=== PATIENT | male | born 1950 | race Caucasian/White ===

== ENCOUNTER → 2017-01-20 | Outpatient (CLI) | payer MEDICARE ==
[~2017-01-20] MED LIST: ACETAMINOHPEN/C1 TAB PO; DAYPRO600 M1 PO; DEXTROAMPH SACC20 M1 PO; KEFLEX500 M1 PO
== END | disposition home or self-care (01) ==
LOC: RAD 10:33
DX: J43.9 Emphysema, unspecified (principal)

== ENCOUNTER → 2017-01-31 | Outpatient (CLI) | payer MEDICARE | END | disposition home or self-care (01) | LOC: CT 14:30 | DX: I25.10 Atherosclerotic heart disease of native coronary artery without angina pectoris (principal); J43.9 Emphysema, unspecified; R22.2 Localized swelling, mass and lump, trunk; F17.200 Nicotine dependence, unspecified, uncomplicated ==

== ENCOUNTER 2017-06-03 09:55 | Emergency (ER) | payer MEDICARE ==
[~2017-06-03] VITALS: Ht 190.5 cm; Wt 68.0 kg
[2017-06-03] MEDS ORDERED: MIRALAX POWDER17 G1 PO (11:48)
== END 2017-06-03 12:34 | disposition home or self-care (01) ==
LOC: ED 09:55
DX: K59.00 Constipation, unspecified (principal); F17.200 Nicotine dependence, unspecified, uncomplicated; Z88.1 Allergy status to other antibiotic agents

== ENCOUNTER → 2017-06-22 | Outpatient (CLI) | payer MEDICARE ==
[~2017-06-22] MED LIST changes: +MIRALAX POWDER17 G1 PO
== END | disposition home or self-care (01) ==
LOC: RAD 10:18
DX: M48.07 Spinal stenosis, lumbosacral region (principal); G95.89 Other specified diseases of spinal cord; M46.06 Spinal enthesopathy, lumbar region

== ENCOUNTER 2017-10-24 11:51 | Inpatient (IN) | payer MEDICARE ==
[~2017-10-24] VITALS: Ht 190.5 cm; Wt 67.2 kg
--- NOTE | ~2017-10-24 | CON ---
[place], [place] REPORT OF CONSULTATION NAME: RACHELLE TREVIZO UNIT #: [id number] ROOM: [facility] DOCTOR: ALVARO JERNIGAN MD,CHRISTOFER BIRTHDATE: [birth year] DOS: 10/26/2017 REASON FOR CONSULTATION: For assessment of current acute progressive respiratory failure with pneumonia. HISTORY OF PRESENT ILLNESS: This is a 67-year-old white male who has been hospitalized under the Hospitalist Services on 10/24/2017. The consultation was requested by Hospitalist Services. The patient has been admitted to the hospital. The patient was brought to the Emergency Room, the patient reported having symptoms of severe pain, which he described in the left chest. Pain was described to be nonradiating and localized, moderate to severe in nature. He was assessed in the Emergency Room a couple of weeks ago with some respiratory symptom, was given amoxicillin and sent home. The pain was described to be worsening progressively. He has been noted to have flu-like symptoms prior to that as well. He has not reported symptoms of hemoptysis. The patient has been admitted to the Telemetry Floor yesterday. He was noted with progressive deterioration of the oxygen requirement. The patient had respiratory failure and transferred to the Intensive Care Unit this morning. The patient's respiratory status worsened. Arterial blood gases were done for this patient and then I requested the patient to be intubated, which has been done successfully this morning. Currently, the patient has been intubated, getting sedation with the use of intra-Diprivan and combination with the IV Versed 5 mg q. 1 hour. Review of systems certainly cannot be performed as the patient is intubated. Remaining history is also obtained with review of the previous documentation of medical records from the other physician's notes. PAST MEDICAL HISTORY: The patient was reported with: 1. History of poor dentition. 2. Osteoarthritis. 3. Nicotine dependence. 4. Question of COPD, but there has not been any formal diagnosis described in the history. SOCIAL HISTORY: He was living at home prior to admission, he has been reported with history in the chart in the [facility] with half a pack of cigarettes per day for 40 years. The patient has been consuming beers every Monday. There was no history of illicit drug use reported. PAST SURGICAL HISTORY: Not reported with any significant past surgical history. FAMILY HISTORY: Reported as both parents had been . The father at age 6060 years old with complication related to mesothelioma. Mother at age 65-year-old with natural causes. HOME MEDICATIONS: The patient reported as a Tylenol with Codeine for p.r.n. use of arthritic pain. DRUG ALLERGY HISTORY: Reported as ERYTHROMYCIN. [place], [place] REPORT OF CONSULTATION NAME: RACHELLE TREVIZO UNIT #: [id number] ROOM: [facility] DOCTOR: CHRISTOFER CONWAY MD BIRTHDATE: [birth year] PHYSICAL EXAMINATION: GENERAL: This is a 67-year-old white male, thinly built, currently intubated on mechanical ventilator. Height were recorded 6 feet 3 inches, weight of 148 pounds, BMI of 18.5. VITAL SIGNS: Normal temperature of the patient recorded. The respiratory rate 18-24, heart rate of ____, blood pressure of 87/52 yesterday and currently noted this morning with assessment at 11:00 a.m. and at 10:00 a.m. 73/45. The respiratory rate ranges between 18 on the mechanical ventilator, high is noted 26 prior to mechanical ventilation. The vital signs of the patient which has been reported with hypotension, the patient yesterday had blood pressure of 80/47. The blood pressure of the patient on admission was noted as 117/69. The blood pressure at 10:00 a.m. was recorded as 73/45 and earlier 87/46. Intake for the patient from last 24 hours, intake 3.710 liter output 1400 mL, positive 2.31 liters. Pulse oxygen saturation of the patient currently noted 100% oxygen supplementation as 99-100% saturation. Prior to that on 50% Venturi mask 88% saturation. HEENT: The patient is currently orally intubated. Gastric tube has been inserted. The neck was supple. Head was atraumatic. Eyes, no icterus. CARDIOVASCULAR: S1, S2 is audible. LUNGS: The patient was noted with moderate reduced breath sounds with expiratory crackles noted in the mid and lower portion of the lung. There was no wheezing heard. ABDOMEN: Soft, flat, nontender. Bowel sound present without any tenderness. SKIN: No lesions or rashes. MUSCULOSKELETAL: No deformities. CENTRAL NERVOUS SYSTEM: Noted as normal extremity movement prior to intubation on mechanical ventilation per nursing staff. LABORATORY DATA: Lactic acid yesterday on admission 10/24/2017 was 1.2 and 2.6 yesterday. The CBC of the patient that was done on admission on 10/24/2017, WBC count normal, hemoglobin 13.3, hematocrit 38.9, platelet count was 91,000, 84% segmented neutrophils. The CMP of the patient on 10/24/2017, normal BUN and creatinine, sodium 129, and calcium was 8.1. The troponin was noted normal on admission on 10/24/2017. CBC yesterday, WBC count 3.2, hemoglobin 12.1, hematocrit 35.5, and platelet count 72,000. The BMP for this patient was noted with normal BUN and creatinine, sodium 131. Follow up lactic acid was noted on 10/25/2017 at 3.1. Blood culture for the patient, gram-positive cocci in clusters noted 1 out of 4 bottles. Another set of blood culture for the patient done on 10/25/2017, noted with one anaerobic bottle gram-positive cocci. The aerobic bottle was noted with no bacterial growth. Arterial blood gas for the patient that was done at 8:10 this morning prior to intubation pH of 7.37, pCO2 32, pO2 53. The chest x-ray of the patient on 10/24/2017 was noted with a small left lobe infiltration, interstitial marking and hyperinflation changes suggestive of COPD. Chest x-ray repeated again for the patient on 10/24/2017 shows increasing pulmonary infiltration noted in the lungs bilaterally worsened from admission. Chest x-ray of the patient that was done this morning shows endotracheal tube was noted 7 cm above the manolo level, infiltration of the lungs noted bilaterally, marked worsening of the infiltration noted with associated pleural fluid in the left side. [place], [place] REPORT OF CONSULTATION NAME: RACHELLE TREVIZO UNIT #: [id number] ROOM: [facility] DOCTOR: ALVARO JERNIGAN MD,[facility] BIRTHDATE: [birth year] IMPRESSION: 1. The patient who has been currently admitted to the hospital with rapidly progressive pneumonia with gram-positive cocci, which are noted in the Gram stain, possibility of Staph aureus progressive pneumonia would be considered in differential diagnosis. Contamination blood culture can be completely excluded, but less likely because two separate cultures were showing gram-positive cocci on two different days. 2. The patient appeared to have a pleural fluid formation related to the current acute pneumonia. 3. Acute respiratory distress syndrome spectrum was also noted because of severe hypoxemia noted on the patient's chest x-ray and with the arterial blood gases prior to intubation on mechanical ventilation. 4. History of chronic tobacco use with strong suspicion of chronic obstructive pulmonary disease, but there was no evidence of acute exacerbation at the present time. 5. Severe protein-calorie malnutrition was noted with a history of use of alcohol every weekend for this patient in the form of beer. PLAN OF MANAGEMENT: The ventilator bundle management has been initiated. The patient used ____ raising the head of the bed at 30-degree all the time unless contraindicated. Nutrition support was started as well. The patient has been receiving heparin intravenously as he has noted with atrial fibrillation with rapid ventricular response. The platelet counts need to be closely monitored because of that. He has been getting intravenous antibiotic for severe pneumonia with the use of nafcillin, Levaquin and vancomycin until the culture results will be clearly known. Monitor results of the cultures. The patient's arterial blood gases were ordered to be done in the next couple of hours to make further adjustments in the mechanical ventilator accordingly. Other supportive therapy, plan of management and care. Usual treatment, all other treatment and change accordingly. Use of the DuoNeb and mobilize the secretions. Supportive care therapy, plan of management and other ones to be continued. Total time for pulmonary critical evaluation and management of this patient was 50 minutes. CHRISTOFER JOHN MD CM:CONSTR:REPORT OF CONSULTATION 1721 10/27/17 0221 interface
[2017-10-24 11:55] VITALS: BP 117/69
[2017-10-24 12:28] LABS: HEMATOCRIT 38.9 % (42.0-52.0); HEMOGLOBIN 13.3 g/dl (14.0-18.0); MEAN CELL VOLUME 89.2 fl (80.0-94.0); MEAN CORPUSCULAR HGB 30.5 pg (27.0-31.0); MEAN CORPUSCULAR HGB CONC 34.2 g/dl (33.0-37.0); MEAN PLATELET VOLUME 9.7 fl (9.6-12.3); PLATELET COUNT AUTOMATED 91 10*3/uL (130-400); RED BLOOD COUNT 4.36 10*6/uL (4.50-5.90); RED CELL DISTRI WIDTH 13.8 % (0-14.5); WHITE BLOOD COUNT 8.8 10*3/uL (4.8-10.8)
[2017-10-24 12:43] LABS: ALKALINE PHOSPHATASE 68 U/L (45-117); BUN 16 mg/dl (7-24); CHLORIDE 94 mmol/L (98-107); CREATININE 1.18 mg/dL (0.70-1.30); POTASSIUM 3.5 mmol/L (3.5-5.1); SGOT/AST 29 IU/L (3-35); SGPT/ALT 17 U/L (12-78); SODIUM 129 mmol/L (136-145); TOTAL PROTEIN 6.7 gm/dL (6.4-8.2)
[2017-10-24 12:47] LABS: TOTAL CELLS COUNTED 100 #CELLS
[2017-10-24 12:48] LABS: PLATELET SUFFICIENCY LOW (NORMAL); ROULEAUX SLIGHT
[2017-10-24 14:40] VITALS: BP 92/52
[2017-10-24 16:00] VITALS: BP 76/48
[2017-10-24 20:00] VITALS: BP 92/48
[2017-10-25] VITALS: BP 94/52
[2017-10-25 08:00] VITALS: BP 121/61
[2017-10-25 08:06] LABS: HEMATOCRIT 35.5 % (42.0-52.0); HEMOGLOBIN 12.1 g/dl (14.0-18.0); MEAN CELL VOLUME 90.6 fl (80.0-94.0); MEAN CORPUSCULAR HGB 30.9 pg (27.0-31.0); MEAN CORPUSCULAR HGB CONC 34.1 g/dl (33.0-37.0); MEAN PLATELET VOLUME 10.2 fl (9.6-12.3); PLATELET COUNT AUTOMATED 72 10*3/uL (130-400); RED BLOOD COUNT 3.92 10*6/uL (4.50-5.90); RED CELL DISTRI WIDTH 14.2 % (0-14.5); WHITE BLOOD COUNT 3.2 10*3/uL (4.8-10.8)
[2017-10-25 08:14] LABS: CHLORIDE 98 mmol/L (98-107); POTASSIUM 4.2 mmol/L (3.5-5.1); SODIUM 131 mmol/L (136-145)
[2017-10-25 08:34] LABS: BUN 21 mg/dl (7-24); CHOLESTEROL 76 mg/dL (<200); FREE T4 1.54 ng/dl (0.76-1.46); HDL CHOLESTEROL 34 mg/dl (40-60); LDL CHOLESTEROL 30 mg/dL (9-159); PHOSPHOROUS 2.1 mg/dL (2.5-4.9); TRIGLYCERIDES 61 mg/dl (<150); VLDL CHOLESTEROL 12 mg/dL (6-40)
[2017-10-25 08:40] LABS: ACT PARTIAL THROMBO TIME 34.9 SECONDS (19.5-32.1); INTERNATIONAL NORM RATIO 1.4 (2.0-3.5)
[2017-10-25 08:51] LABS: TOTAL CELLS COUNTED 100 #CELLS
[2017-10-25 08:52] LABS: PLATELET SUFFICIENCY LOW (NORMAL)
[2017-10-25 08:54] LABS: ACANTHOCYTES FEW; BURR CELLS MODERATE
[2017-10-25 09:05] LABS: VITAMIN D, 25-HYDROXY 16.5 ng/mL (30-100)
[2017-10-25 12:00] VITALS: BP 124/66
[2017-10-25 18:52] LABS: HEMATOCRIT 35.6 % (42.0-52.0); HEMOGLOBIN 12.2 g/dl (14.0-18.0); MEAN CELL VOLUME 88.8 fl (80.0-94.0); MEAN CORPUSCULAR HGB 30.4 pg (27.0-31.0); MEAN CORPUSCULAR HGB CONC 34.3 g/dl (33.0-37.0); PLATELET COUNT AUTOMATED 64 10*3/uL (130-400); RED BLOOD COUNT 4.01 10*6/uL (4.50-5.90)
[2017-10-25 18:56] VITALS: BP 80/47
[2017-10-25 19:07] LABS: ALBUMIN 1.9 gm/dl (3.1-4.5); ALKALINE PHOSPHATASE 36 U/L (45-117); BUN 23 mg/dl (7-24); CHLORIDE 102 mmol/L (98-107); CREATININE 0.97 mg/dL (0.70-1.30); PHOSPHOROUS 2.8 mg/dL (2.5-4.9); POTASSIUM 4.1 mmol/L (3.5-5.1); SGOT/AST 28 IU/L (3-35); SGPT/ALT 14 U/L (12-78); SODIUM 132 mmol/L (136-145); TOTAL PROTEIN 5.3 gm/dL (6.4-8.2)
[2017-10-25 19:41] LABS: ATYPICAL LYMPHS 1 % (0-0); BURR CELLS MODERATE; PLATELET SUFFICIENCY LOW (NORMAL); TOTAL CELLS COUNTED 100 #CELLS
[2017-10-25 19:42] LABS: POLYCHROMASIA SLIGHT
[2017-10-25 19:47] LABS: DOHLE BODIES FEW; TOXIC GRANULATION MODERATE
[2017-10-25 20:00] VITALS: BP 87/52
[2017-10-26] VITALS (21 sets, daily range): BP systolic 73–150; BP diastolic 41–78
[2017-10-26 05:34] LABS: ALBUMIN 1.7 gm/dl (3.1-4.5); BUN 20 mg/dl (7-24); CHLORIDE 106 mmol/L (98-107); PHOSPHOROUS 2.1 mg/dL (2.5-4.9); POTASSIUM 4.2 mmol/L (3.5-5.1); SGOT/AST 30 IU/L (3-35); SODIUM 137 mmol/L (136-145)
[2017-10-26 05:36] LABS: ALKALINE PHOSPHATASE 32 U/L (45-117); SGPT/ALT 11 U/L (12-78)
[2017-10-26 06:07] LABS: HEMATOCRIT 35.9 % (42.0-52.0); HEMOGLOBIN 12.2 g/dl (14.0-18.0); MEAN CELL VOLUME 90.7 fl (80.0-94.0); MEAN CORPUSCULAR HGB 30.8 pg (27.0-31.0); MEAN PLATELET VOLUME 10.4 fl (9.6-12.3); PLATELET COUNT AUTOMATED 76 10*3/uL (130-400); RED BLOOD COUNT 3.96 10*6/uL (4.50-5.90); RED CELL DISTRI WIDTH 14.2 % (0-14.5); WHITE BLOOD COUNT 2.9 10*3/uL (4.8-10.8)
[2017-10-26 07:07] LABS: BURR CELLS MODERATE; PLATELET SUFFICIENCY LOW (NORMAL); TOTAL CELLS COUNTED 100 #CELLS; TOXIC GRANULATION MARKED
[2017-10-26 08:20] LABS: ABG O2 SATURATION 88.7 % (95-97); ARTERIAL BLOOD GAS PH 7.37 (7.35-7.45)
[2017-10-26 08:21] LABS: ABG BASE EXCESS -5.8 mmol/L (-2.0-2.0)
[2017-10-26 12:35] LABS: ABG HCO3 18.9 mmol/l (22-26); ABG O2 SATURATION 98.7 % (95-97); ARTERIAL BLOOD GAS PCO2 46.6 mmHg (35-45); ARTERIAL BLOOD GAS PH 7.23 (7.35-7.45)
[2017-10-26 12:36] LABS: ABG BASE EXCESS -8.1 mmol/L (-2.0-2.0)
[2017-10-26 14:37] LABS: ACT PARTIAL THROMBO TIME 42.6 SECONDS (20.8-31.5); INTERNATIONAL NORM RATIO 1.2 (2.0-3.5)
[2017-10-26 15:01] LABS: ABG HCO3 18.3 mmol/l (22-26); ABG O2 SATURATION 97.7 % (95-97); ARTERIAL BLOOD GAS PCO2 38.2 mmHg (35-45); ARTERIAL BLOOD GAS PH 7.299 (7.35-7.45)
[2017-10-26 15:03] LABS: ABG BASE EXCESS -7.2 mmol/L (-2.0-2.0)
[2017-10-26 19:19] LABS: ABG HCO3 20.3 mmol/l (22-26); ABG O2 SATURATION 94.4 % (95-97); ARTERIAL BLOOD GAS PCO2 59.8 mmHg (35-45); ARTERIAL BLOOD GAS PO2 94.2 mmHg (80-90)
[2017-10-26 19:21] LABS: ABG BASE EXCESS -7.6 mmol/L (-2.0-2.0)
[2017-10-26 19:22] LABS: ARTERIAL BLOOD GAS PH 7.173 (7.35-7.45)
[2017-10-26 20:54] LABS: ABG HCO3 22.6 mmol/l (22-26); ARTERIAL BLOOD GAS PO2 86.7 mmHg (80-90)
[2017-10-26 20:57] LABS: ABG BASE EXCESS -11.1 mmol/L (-2.0-2.0); ARTERIAL BLOOD GAS PH 7.009 (7.35-7.45)
[2017-10-26 20:58] LABS: ARTERIAL BLOOD GAS PCO2 95.1 mmHg (35-45)
[2017-10-27] VITALS: BP 86/46
[2017-10-27 01:00] VITALS: BP 85/46
== END 2017-10-27 02:15 | disposition short-term general hospital (02) | DRG 871 ==
LOC: ED 11:51 → ICCU 13:45 → 4E 13:45 → EDHOLD 13:45 → 4E 13:53 → ICCU 10-25 18:47
PROVIDERS: Emergency Medicine; Family Medicine; Internal Medicine; Internal Medicine Cardiovascular Disease; Internal Medicine Critical Care Medicine; Internal Medicine Hospice and Palliative Medicine
PROC: 5A1935Z Respiratory Ventilation, Less than 24 Consecutive Hours (ICD-10-PCS; principal; 2017-10-26)
PROC: 0BH17EZ Insertion of Endotracheal Airway into Trachea, Via Natural or Artificial Opening (ICD-10-PCS; principal; 2017-10-26)
DX: A41.9 Sepsis, unspecified organism (principal); J18.1 Lobar pneumonia, unspecified organism; E43 Unspecified severe protein-calorie malnutrition; J96.01 Acute respiratory failure with hypoxia; D69.6 Thrombocytopenia, unspecified; J96.02 Acute respiratory failure with hypercapnia; E87.2 Acidosis; E87.8 Other disorders of electrolyte and fluid balance, not elsewhere classified; E87.1 Hypo-osmolality and hyponatremia; I48.91 Unspecified atrial fibrillation; E83.39 Other disorders of phosphorus metabolism; J44.1 Chronic obstructive pulmonary disease with (acute) exacerbation; Z68.1 Body mass index [BMI] 19.9 or less, adult; K02.9 Dental caries, unspecified; M19.90 Unspecified osteoarthritis, unspecified site; F17.210 Nicotine dependence, cigarettes, uncomplicated; J84.10 Pulmonary fibrosis, unspecified; R73.9 Hyperglycemia, unspecified; D64.9 Anemia, unspecified; B96.89 Other specified bacterial agents as the cause of diseases classified elsewhere; F10.10 Alcohol abuse, uncomplicated; E53.8 Deficiency of other specified B group vitamins; I95.9 Hypotension, unspecified; Z71.6 Tobacco abuse counseling; Z80.8 Family history of malignant neoplasm of other organs or systems; Z88.8 Allergy status to other drugs, medicaments and biological substances; Z79.899 Other long term (current) drug therapy

== ENCOUNTER → 2018-09-17 | Outpatient (CLI) | payer MEDICARE ==
--- NOTE | ~2018-09-17 | EKG ---
[place], [place] ELECTROCARDIOGRAM REPORT NAME: RACHELLE TREVIZO UNIT #: [id number] ROOM: DOCTOR: DASHA DRAFT REPORT BIRTHDATE: [birth year] [facility] Test Date: 2018-09-17 Test Time: 11:45:35 Pat Name: RACHELLE TREVIZO Department: Room: Gender: Production Shift Supervisor: : 1950 Requested By: LIDIA LONGO Order Number: [id number] Reading MD: Yonis Maria MD Measurements Intervals [place] Rate: 63 P: 60 LA: 175 QRS: 69 QRSD: 78 T: 73 QT: 374 QTc: 383 Interpretive Statements Sinus rhythm Atrial premature complex RSR' in V1 or V2, right VCD or RVH Electronically Signed On 09-17-2018 14:25:43 PST by Yonis Maria MD CM:EKGRPT:ELECTROCARDIOGRAM REPORT [id number] LIDIA LOU DRAFT REPORT LIDIA LONGO
== END | disposition home or self-care (01) ==
LOC: CARD 11:30
DX: Z51.81 Encounter for therapeutic drug level monitoring (principal); Z79.899 Other long term (current) drug therapy

== ENCOUNTER → 2019-11-21 | Outpatient (CLI) | payer MEDICARE | END | disposition home or self-care (01) | LOC: RAD 15:02 | DX: L97.312 Non-pressure chronic ulcer of right ankle with fat layer exposed (principal); A49.02 Methicillin resistant Staphylococcus aureus infection, unspecified site ==

== ENCOUNTER → 2020-08-17 | Outpatient (CLI) | payer MEDICARE | END | disposition home or self-care (01) | LOC: CARD 11:26 | PROVIDERS: ATTEND Nurse Practitioner Family | DX: Z79.899 Other long term (current) drug therapy (principal); Z51.81 Encounter for therapeutic drug level monitoring ==

== ENCOUNTER → 2021-02-18 | Outpatient (CLI) | payer MEDICARE ==
[2021-02-18 11:04] LABS: BUN 21 mg/dl (7-24); CHLORIDE 107 mmol/L (98-107); CHOLESTEROL 126 mg/dL (<200); CREATININE 1.25 mg/dL (0.70-1.30); POTASSIUM 4.4 mmol/L (3.5-5.1); SODIUM 139 mmol/L (136-145); TRIGLYCERIDES 49 mg/dl (<150); VLDL CHOLESTEROL 10 mg/dL (6-40)
[2021-02-18 11:06] LABS: HDL CHOLESTEROL 39 mg/dl (40-60); LDL CHOLESTEROL 77 mg/dL (9-159)
== END | disposition home or self-care (01) ==
LOC: LAB 10:11
PROVIDERS: ATTEND Internal Medicine
DX: Z12.5 Encounter for screening for malignant neoplasm of prostate (principal); I10 Essential (primary) hypertension; I48.91 Unspecified atrial fibrillation; E78.5 Hyperlipidemia, unspecified

== ENCOUNTER 2021-11-22 14:38 | Inpatient (IN) | payer MEDICARE ==
[2021-11-22] VITALS (27 sets, daily range): BP systolic 87–117; BP diastolic 47–72
[~2021-11-22] VITALS: Ht 190.5 cm; Wt 72.6 kg
[2021-11-22 15:45] LABS: MEAN CELL VOLUME 63.2 fl (80.0-94.0); MEAN CORPUSCULAR HGB 14.8 pg (27.0-31.0); MEAN CORPUSCULAR HGB CONC 23.5 g/dl (33.0-37.0); MEAN PLATELET VOLUME 10.1 fl (9.6-12.3); NUCLEATED RED BLOOD CELL 0.5 % (0.0-0.0); PLATELET COUNT AUTOMATED 91 10*3/uL (130-400); RED BLOOD COUNT 2.09 10*6/uL (4.50-5.90); RED CELL DISTRI WIDTH 22.5 % (0-14.5); WHITE BLOOD COUNT 3.7 10*3/uL (4.8-10.8)
[2021-11-22 15:53] LABS: ALBUMIN 2.3 gm/dl (3.1-4.5); ALKALINE PHOSPHATASE 100 U/L (45-117); BUN 18 mg/dl (7-24); CHLORIDE 110 mmol/L (98-107); CREATININE 1.25 mg/dL (0.70-1.30); POTASSIUM 4.2 mmol/L (3.5-5.1); SGOT/AST 17 IU/L (3-35); SGPT/ALT 18 U/L (12-78); SODIUM 139 mmol/L (136-145)
[2021-11-22 16:10] LABS: BASOPHILS 1 % (0-1); TOTAL CELLS COUNTED 100 #CELLS
[2021-11-22 16:11] LABS: PLATELET SUFFICIENCY LOW (NORMAL)
[2021-11-22 16:12] LABS: MICROCYTOSIS MODERATE
[2021-11-22 16:13] LABS: POLYCHROMASIA SLIGHT; SCHISTOCYTES FEW
[2021-11-22] MEDS ORDERED: ELIQUIS5 M1 PO (16:14)
[2021-11-22 16:15] LABS: HEMATOCRIT 13.2 % (42.0-52.0)
[2021-11-22] MEDS ORDERED: Lopressor25 MG PO (16:15)
[2021-11-22] MEDS ORDERED: PANTOPRAZOLE SO40 MG PO (16:16)
[2021-11-22] MEDS ORDERED: DIGOXIN125 MCG PO (16:16)
[2021-11-23] VITALS (22 sets, daily range): BP systolic 97–126; BP diastolic 46–70
[2021-11-23 04:44] LABS: HEMATOCRIT 26.3 % (42.0-52.0); MEAN CORPUSCULAR HGB 20.9 pg (27.0-31.0); MEAN CORPUSCULAR HGB CONC 28.9 g/dl (33.0-37.0); NUCLEATED RED BLOOD CELL 1.2 % (0.0-0.0); PLATELET COUNT AUTOMATED 83 10*3/uL (130-400); RED BLOOD COUNT 3.64 10*6/uL (4.50-5.90); RED CELL DISTRI WIDTH 27.6 % (0-14.5); WHITE BLOOD COUNT 3.3 10*3/uL (4.8-10.8)
[2021-11-23 04:53] LABS: MEAN CELL VOLUME 72.3 fl (80.0-94.0)
[2021-11-23 05:06] LABS: ALBUMIN 2.3 gm/dl (3.1-4.5); ALKALINE PHOSPHATASE 107 U/L (45-117); BUN 16 mg/dl (7-24); CHLORIDE 109 mmol/L (98-107); CREATININE 1.06 mg/dL (0.70-1.30); POTASSIUM 3.8 mmol/L (3.5-5.1); SGOT/AST 17 IU/L (3-35); SGPT/ALT 19 U/L (12-78); SODIUM 139 mmol/L (136-145); TOTAL PROTEIN 6.1 gm/dL (6.4-8.2)
[2021-11-23 05:07] LABS: FREE T4 1.25 ng/dl (0.76-1.46)
[2021-11-23 05:09] LABS: MICROCYTOSIS MODERATE; OVALOCYTES FEW; PLATELET SUFFICIENCY LOW (NORMAL); SCHISTOCYTES FEW; TOTAL CELLS COUNTED 100 #CELLS
[2021-11-23 06:16] LABS: BILIRUBIN Negative (Negative); BLOOD Negative (Negative); CLARITY Clear (Clear); COLOR Yellow (Yellow); GLUCOSE Negative (Negative); KETONE Negative (Negative); LEUKO ESTERASE Negative (Negative); NITRITE Negative (Negative); SPECIFIC GRAVITY 1.015 (1.001-1.030)
[2021-11-23 17:29] LABS: HEMATOCRIT 26.3 % (42.0-52.0); MEAN CELL VOLUME 72.3 fl (80.0-94.0); MEAN CORPUSCULAR HGB 21.2 pg (27.0-31.0); MEAN CORPUSCULAR HGB CONC 29.3 g/dl (33.0-37.0); NUCLEATED RED BLOOD CELL 0.1 10*3/uL (0.0-0.0); NUCLEATED RED BLOOD CELL 1.7 % (0.0-0.0); PLATELET COUNT AUTOMATED 85 10*3/uL (130-400); RED BLOOD COUNT 3.64 10*6/uL (4.50-5.90); RED CELL DISTRI WIDTH 27.7 % (0-14.5); WHITE BLOOD COUNT 3.5 10*3/uL (4.8-10.8)
[2021-11-23 17:52] LABS: TOTAL CELLS COUNTED 100 #CELLS
[2021-11-23 17:53] LABS: ACANTHOCYTES MODERATE; DIFFERENTIAL COMMENT NRBC PRESENT
[2021-11-23 17:54] LABS: SCHISTOCYTES FEW; TARGET CELLS FEW
[2021-11-23 17:55] LABS: PLATELET SUFFICIENCY LOW (NORMAL); POLYCHROMASIA SLIGHT
[2021-11-24] VITALS: BP 104/51
[2021-11-24 06:42] LABS: BASO % 0.2 % (0.0-1.0); HEMATOCRIT 24.6 % (42.0-52.0); LYMPH # 0.7 10*3/uL (1.3-4.4); LYMPH % 10.1 % (27.0-41.0); MEAN CELL VOLUME 74.3 fl (80.0-94.0); MEAN CORPUSCULAR HGB 22.1 pg (27.0-31.0); MEAN CORPUSCULAR HGB CONC 29.7 g/dl (33.0-37.0); MONO # 0.2 10*3/uL (0.1-1.0); MONO % 2.5 % (3.0-9.0); NEUT # 5.6 10*3/uL (2.3-7.9); NUCLEATED RED BLOOD CELL 0.5 % (0.0-0.0); PLATELET COUNT AUTOMATED 91 10*3/uL (130-400); RED BLOOD COUNT 3.31 10*6/uL (4.50-5.90); RED CELL DISTRI WIDTH 28.8 % (0-14.5); WHITE BLOOD COUNT 6.5 10*3/uL (4.8-10.8)
[2021-11-24 06:43] LABS: ACT PARTIAL THROMBO TIME 30.2 SECONDS (20.0-32.1); INTERNATIONAL NORM RATIO 1.2 (2.0-3.5)
[2021-11-24 06:48] LABS: RETICULOCYTE % 1.39 % (0.50-2.50)
[2021-11-24 07:05] LABS: ALBUMIN 2.1 gm/dl (3.1-4.5); ALKALINE PHOSPHATASE 89 U/L (45-117); BUN 22 mg/dl (7-24); CHLORIDE 109 mmol/L (98-107); CREATININE 0.99 mg/dL (0.70-1.30); POTASSIUM 4.3 mmol/L (3.5-5.1); SGOT/AST 9 IU/L (3-35); SGPT/ALT 16 U/L (12-78); SODIUM 138 mmol/L (136-145); TOTAL PROTEIN 5.5 gm/dL (6.4-8.2)
[2021-11-24 08:00] VITALS: BP 97/53
[2021-11-24 12:00] VITALS: BP 114/48
[2021-11-24 16:00] VITALS: BP 103/63
[2021-11-24 20:00] VITALS: BP 107/55
[2021-11-25] VITALS (12 sets, daily range): BP systolic 95–115; BP diastolic 50–62
[2021-11-25 01:06] LABS: TOTAL PROTEIN, SERUM 5.2 g/dL (6.0-8.5)
[2021-11-25 06:49] LABS: ALBUMIN 2.1 gm/dl (3.1-4.5); ALKALINE PHOSPHATASE 79 U/L (45-117); BUN 22 mg/dl (7-24); CHLORIDE 112 mmol/L (98-107); CREATININE 0.96 mg/dL (0.70-1.30); POTASSIUM 3.8 mmol/L (3.5-5.1); SGOT/AST 9 IU/L (3-35); SGPT/ALT 15 U/L (12-78); SODIUM 142 mmol/L (136-145); TOTAL PROTEIN 5.2 gm/dL (6.4-8.2)
[2021-11-25 07:46] LABS: HEMATOCRIT 22.7 % (42.0-52.0); MEAN CELL VOLUME 77.2 fl (80.0-94.0); MEAN CORPUSCULAR HGB 22.8 pg (27.0-31.0); MEAN CORPUSCULAR HGB CONC 29.5 g/dl (33.0-37.0); NUCLEATED RED BLOOD CELL 0.3 % (0.0-0.0); PLATELET COUNT AUTOMATED 92 10*3/uL (130-400); RED BLOOD COUNT 2.94 10*6/uL (4.50-5.90); RED CELL DISTRI WIDTH 30.1 % (0-14.5); WHITE BLOOD COUNT 6.9 10*3/uL (4.8-10.8)
[2021-11-25 08:08] LABS: PLATELET SUFFICIENCY LOW (NORMAL); POLYCHROMASIA SLIGHT; SCHISTOCYTES MODERATE; TOTAL CELLS COUNTED 100 #CELLS
[2021-11-25 08:09] LABS: ACANTHOCYTES FEW; MICROCYTOSIS SLIGHT; OVALOCYTES FEW; ROULEAUX SLIGHT; TARGET CELLS FEW
[2021-11-25 14:58] LABS: BASO % 0.3 % (0.0-1.0); EOS # 0.2 10*3/uL (0.0-0.4); HEMATOCRIT 27.8 % (42.0-52.0); LYMPH # 1.6 10*3/uL (1.3-4.4); LYMPH % 24.2 % (27.0-41.0); MEAN CORPUSCULAR HGB 21.3 pg (27.0-31.0); MEAN CORPUSCULAR HGB CONC 28.8 g/dl (33.0-37.0); MONO # 0.5 10*3/uL (0.1-1.0); MONO % 7.3 % (3.0-9.0); NEUT # 4.2 10*3/uL (2.3-7.9); NEUT % 63.8 % (47.0-73.0); NUCLEATED RED BLOOD CELL 0.6 % (0.0-0.0); PLATELET COUNT AUTOMATED 93 10*3/uL (130-400); RED BLOOD COUNT 3.76 10*6/uL (4.50-5.90); RED CELL DISTRI WIDTH 28.6 % (0-14.5); WHITE BLOOD COUNT 6.6 10*3/uL (4.8-10.8)
[2021-11-25 15:00] LABS: MEAN CELL VOLUME 73.9 fl (80.0-94.0)
[2021-11-25 16:08] LABS: ALBUMIN 2.6 g/dL (2.9-4.4); ALPHA-1-GLOBULIN 0.2 g/dL (0.0-0.4); ALPHA-2-GLOBULIN 0.5 g/dL (0.4-1.0); BETA GLOBULIN 0.9 g/dL (0.7-1.3); GAMMA GLOBULIN 1.1 g/dL (0.4-1.8); GLOBULIN, TOTAL 2.6 g/dL (2.2-3.9); M-SPIKE Comment: g/dL (Not Observed)
[2021-11-26] VITALS: BP 113/57
[2021-11-26 06:15] LABS: BASO % 0.6 % (0.0-1.0); EOS # 0.3 10*3/uL (0.0-0.4); EOS % 5.6 % (1.0-4.0); HEMATOCRIT 27.4 % (42.0-52.0); LYMPH # 1.1 10*3/uL (1.3-4.4); LYMPH % 24.5 % (27.0-41.0); MEAN CELL VOLUME 75.1 fl (80.0-94.0); MEAN CORPUSCULAR HGB 21.6 pg (27.0-31.0); MEAN CORPUSCULAR HGB CONC 28.8 g/dl (33.0-37.0); MONO # 0.4 10*3/uL (0.1-1.0); MONO % 8.7 % (3.0-9.0); NEUT # 2.7 10*3/uL (2.3-7.9); NEUT % 59.3 % (47.0-73.0); PLATELET COUNT AUTOMATED 77 10*3/uL (130-400); RED BLOOD COUNT 3.65 10*6/uL (4.50-5.90); RED CELL DISTRI WIDTH 29.1 % (0-14.5); WHITE BLOOD COUNT 4.6 10*3/uL (4.8-10.8)
[2021-11-26 06:29] LABS: BUN 18 mg/dl (7-24); CHLORIDE 109 mmol/L (98-107); CREATININE 0.92 mg/dL (0.70-1.30); POTASSIUM 3.9 mmol/L (3.5-5.1); SODIUM 139 mmol/L (136-145)
[2021-11-26 07:10] VITALS: BP 107/58
[2021-11-26 12:00] VITALS: BP 108/56
[2021-11-26 16:00] VITALS: BP 120/56
[2021-11-26 18:00] LABS: BILIRUBIN Negative (Negative); BLOOD Trace-Intact (Negative); CLARITY Clear (Clear); COLOR Yellow (Yellow); GLUCOSE Negative (Negative); KETONE Negative (Negative); LEUKO ESTERASE Negative (Negative); NITRITE Negative (Negative); PH 7.5 (4.5-8.0)
[2021-11-26 18:07] LABS: RBC 41-50 rbc/hpf (0-2); WBC 0-2 wbc/hpf (0-5)
[2021-11-26 18:08] LABS: BACTERIA TRACE
[2021-11-26 20:00] VITALS: BP 104/55
[2021-11-27] VITALS: BP 109/58
[2021-11-27 06:30] LABS: BASO % 0.7 % (0.0-1.0); EOS # 0.2 10*3/uL (0.0-0.4); EOS % 4.1 % (1.0-4.0); HEMATOCRIT 28.8 % (42.0-52.0); LYMPH % 23.6 % (27.0-41.0); MEAN CELL VOLUME 74.6 fl (80.0-94.0); MEAN CORPUSCULAR HGB 21.8 pg (27.0-31.0); MEAN CORPUSCULAR HGB CONC 29.2 g/dl (33.0-37.0); MONO # 0.4 10*3/uL (0.1-1.0); MONO % 9.2 % (3.0-9.0); NEUT # 2.7 10*3/uL (2.3-7.9); PLATELET COUNT AUTOMATED 80 10*3/uL (130-400); RED BLOOD COUNT 3.86 10*6/uL (4.50-5.90); RED CELL DISTRI WIDTH 29.9 % (0-14.5); WHITE BLOOD COUNT 4.4 10*3/uL (4.8-10.8)
[2021-11-27 08:00] VITALS: BP 110/60
[2021-11-27] MEDS ORDERED: FEROSUL325 MG PO (11:17)
[2021-11-27] MEDS ORDERED: LEVOFLOXACIN750 M2 PO (11:18)
== END 2021-11-27 12:55 | disposition home or self-care (01) | DRG 871 ==
LOC: ED 14:38 → EDHOLD 16:59 → 4E 16:59 → EDHOLD 17:13 → 4E 17:34 → EDHOLD 19:01 → ICCU 11-23 12:04 → 4E 11-23 12:36
PROVIDERS: Emergency Medicine; Hospitalist; Internal Medicine; Internal Medicine Hematology & Oncology; ADMIT Family Medicine; ATTEND Family Medicine
PROC: 30233N1 Transfusion of Nonautologous Red Blood Cells into Peripheral Vein, Percutaneous Approach (ICD-10-PCS; principal; 2021-11-22)
PROC: BD1BYZZ Fluoroscopy of Mouth/Oropharynx using Other Contrast (ICD-10-PCS; 2021-11-24)
DX: A41.9 Sepsis, unspecified organism (principal); J15.6 Pneumonia due to other Gram-negative bacteria; E43 Unspecified severe protein-calorie malnutrition; D61.818 Other pancytopenia; I50.32 Chronic diastolic (congestive) heart failure; N18.31 Chronic kidney disease, stage 3a; R65.20 Severe sepsis without septic shock; Z20.822 Contact with and (suspected) exposure to COVID-19; E86.0 Dehydration; D69.6 Thrombocytopenia, unspecified; I95.89 Other hypotension; E87.8 Other disorders of electrolyte and fluid balance, not elsewhere classified; R73.9 Hyperglycemia, unspecified; M19.90 Unspecified osteoarthritis, unspecified site; K02.9 Dental caries, unspecified; E53.8 Deficiency of other specified B group vitamins; I48.0 Paroxysmal atrial fibrillation; J43.9 Emphysema, unspecified; Z88.8 Allergy status to other drugs, medicaments and biological substances

== ENCOUNTER 2022-04-10 13:07 | Emergency (ER) | payer MEDICARE ==
[~2022-04-10] VITALS: Wt 68.5 kg
[~2022-04-10 13:07] MED LIST changes: +DIGOXIN125 MCG PO; +ELIQUIS5 M1 PO; +FEROSUL325 MG PO; +LEVOFLOXACIN750 M2 PO; +Lopressor25 MG PO; +PANTOPRAZOLE SO40 MG PO
[2022-04-10] MEDS ORDERED: CEPHALEXIN500 M1 PO (15:03)
[2022-04-10] MEDS ORDERED: SEPTDS PO (15:03)
[2022-04-10] MEDS ORDERED: CLINDAMYCIN HC300 MG PO (15:06)
== END 2022-04-10 15:27 | disposition home or self-care (01) ==
LOC: ED 13:07
DX: L03.115 Cellulitis of right lower limb (principal); Z88.1 Allergy status to other antibiotic agents; Z79.899 Other long term (current) drug therapy; Z87.891 Personal history of nicotine dependence

== ENCOUNTER → 2022-04-14 | Outpatient (CLI) | payer MEDICARE ==
[~2022-04-14] MED LIST changes: +CEPHALEXIN500 M1 PO; +CLINDAMYCIN HC300 MG PO; +SEPTDS PO
== END | disposition home or self-care (01) ==
LOC: US 16:22
PROVIDERS: ATTEND Podiatrist
DX: M79.604 Pain in right leg (principal); R60.9 Edema, unspecified

== ENCOUNTER → 2023-05-15 | Day surgery (SDC) | payer MEDICARE ==
[~2023-05-15] VITALS: Ht 190.5 cm; Wt 59.4 kg
[~2023-05-15] MED LIST changes: +HYDROCODONE-AC1 EAC1 PO
[2023-05-15 09:54] VITALS: BP 128/65
[2023-05-15 11:10] VITALS: BP 100/49
[2023-05-15 11:25] VITALS: BP 116/58
[2023-05-15 11:40] VITALS: BP 124/61
== END ==
LOC: SDC 05-11 09:30
PROVIDERS: ATTEND Surgery
DX: C18.9 Malignant neoplasm of colon, unspecified (principal); K63.89 Other specified diseases of intestine; K56.609 Unspecified intestinal obstruction, unspecified as to partial versus complete obstruction; Z87.891 Personal history of nicotine dependence; Z98.890 Other specified postprocedural states; Z79.899 Other long term (current) drug therapy

== ENCOUNTER 2023-07-09 18:22 | Emergency (ER) | payer MEDICARE ==
[~2023-07-09] VITALS: Ht 190.5 cm; Wt 59.4 kg
[2023-07-09] MEDS ORDERED: VIBRAMYCIN100 MG PO (19:00)
== END 2023-07-09 19:23 | disposition home or self-care (01) ==
LOC: ED 18:22
DX: L03.114 Cellulitis of left upper limb (principal); M19.90 Unspecified osteoarthritis, unspecified site; Z88.1 Allergy status to other antibiotic agents; Z98.890 Other specified postprocedural states; Z87.891 Personal history of nicotine dependence

== ENCOUNTER → 2023-12-05 | Outpatient (CLI) | payer MEDICARE ==
[~2023-12-05] MED LIST changes: +HEPARIN SODIUM 500 UNIT/5 ML SYR IV ONE; +HEPARIN SODIUM 500 UNIT/5 ML SYR IV SCH; +IOHEXOL 300 MG/ML 100 ML VIAL IV ONE; +VIBRAMYCIN100 MG PO
== END | disposition home or self-care (01) ==
LOC: CT 00:53
PROVIDERS: ATTEND Internal Medicine Hematology & Oncology
DX: C18.7 Malignant neoplasm of sigmoid colon (principal); E04.9 Nontoxic goiter, unspecified; K76.89 Other specified diseases of liver; I77.811 Abdominal aortic ectasia; K80.20 Calculus of gallbladder without cholecystitis without obstruction; K40.20 Bilateral inguinal hernia, without obstruction or gangrene, not specified as recurrent; N28.1 Cyst of kidney, acquired; Z98.890 Other specified postprocedural states; R16.1 Splenomegaly, not elsewhere classified

== ENCOUNTER → 2024-07-01 | Outpatient (CLI) | payer MEDICARE ==
[~2024-07-01] MED LIST changes: -HEPARIN SODIUM 500 UNIT/5 ML SYR IV ONE; -HEPARIN SODIUM 500 UNIT/5 ML SYR IV SCH; -IOHEXOL 300 MG/ML 100 ML VIAL IV ONE
== END | disposition home or self-care (01) ==
LOC: LAB 09:52
PROVIDERS: ATTEND Radiology Diagnostic Radiology
DX: Z01.812 Encounter for preprocedural laboratory examination (principal); Z79.899 Other long term (current) drug therapy

== ENCOUNTER → 2024-07-02 | Outpatient (CLI) | payer MEDICARE ==
[~2024-07-02] MED LIST changes: +IOHEXOL 300 MG/ML 100 ML VIAL IV ONE; +IOHEXOL 300 MG/ML 100 ML VIAL ONE
== END | disposition home or self-care (01) ==
LOC: CT 03:35
PROVIDERS: ATTEND Internal Medicine Hematology & Oncology
DX: C18.7 Malignant neoplasm of sigmoid colon (principal); D69.6 Thrombocytopenia, unspecified